=== PATIENT | female | born 1985 | race Caucasian/White ===

== ENCOUNTER 2019-03-08 02:22 | Inpatient (IN) ==
[2019-03-08] MEDS ORDERED: BUTORPHANOL 2 MG/ML VIAL IV PRN (02:39)
[2019-03-08] MEDS ORDERED: MEPERIDINE 50 MG/1 ML VIAL IV PRN (02:39)
[2019-03-08] MEDS: LACTATED RINGERS 1,000 ML IV SCH ×3 (02:40→10:27)
[2019-03-08] MEDS ORDERED: CITRIC ACID/SODIUM CITRATE 30 ML UDCUP PO PRN (02:42)
[2019-03-08] MEDS ORDERED: FAMOTIDINE 20 MG/2 ML VIAL IV PRN (02:43)
[2019-03-08] MEDS ORDERED: ePHEDrine 50 MG/ML AMP IV PRN (02:44)
[2019-03-08] MEDS ORDERED: OXYTOCIN/LR 20 UNIT/1,000 ML BAG IV PRN (02:46)
[2019-03-08] MEDS: ONDANSETRON 4 MG/2 ML VIAL IV PRN ×2 (02:55→11:18)
[2019-03-08] MEDS ORDERED: fentaNYL 2 MCG/ROPIV 0.2% EPID 100 ML EPIDURAL SCH (03:00)
[2019-03-08 03:09] LABS: Basophils % 0.5 % (0.0-0.8); Eosinophils # 0.2 10*3/uL (0.0-0.87); Eosinophils % 2.9 % (0.00-10.9); Hematocrit 32.4 VOL% (35.7-47.0); Hemoglobin 10.3 GM/DL (12.0-16.0); Immature Granulocytes % 0.4 %; Immature Granulocytes Absolute 0.03 #; Lymphocytes # 1.6 10*3/uL (1.4-4.0); Lymphocytes % 20.8 % (21.3-54.2); Mean Corpuscular HGB Conc 31.8 GM/DL (32-36); Mean Corpuscular Volume 87.6 FL (87-102); Mean Platelet Volume 10.8 FL (9.6-12.0); Monocytes % 9.8 % (1.7-12.7); Neutrophils % 65.6 % (38.7-73.9); Platelet Count 183 T/CUMM (130-400); Red Cell Distribution Width 13.6 % (9.3-17.3); White Blood Count 7.5 T/CUMM (4-12)
[2019-03-08 03:32] LABS: Alanine Aminotransferase 20 U/L (13-56); Albumin 2.8 G/DL (3.4-5.0); Alkaline Phosphatase 259 U/L (45-117); Aspartate Amino Transferase 20 U/L (0-37); Bilirubin,Total < 0.39 MG/DL (0.2-1.0); Blood Urea Nitrogen 11 MG/DL (7-18); Calcium 8.7 MG/DL (8.5-10.1); Glucose 85 MG/DL (74-106); Osmolality,Calculated 276.4 MOS/KG (273-304); Total Protein 6.5 G/DL (6.4-8.3)
[2019-03-08] MEDS: AMPICILLIN INJ 2,000 MG in SODIUM CHLORIDE 0.9% 100 ML IV SCH ×2 (04:40→10:57)
[2019-03-08 08:51] LABS: Apearance,Urine CLEAR (Clear); Bacteria,Urine Occasional /HPF (Few); Bilirubin,Urine Negative (Negative); Blood, Urine Negative (Negative); Glucose,Urine (UA) Negative (Negative); Ketones,Urine Negative (Negative); Nitrite,Urine Negative (Negative); Protein,Urine Negative; Urine Color Straw (Yellow); Urine Specific Gravity 1.005 (1.001-1.035); Urine Urobilinogen < 2.0 EU/DL (0.2-1.0)
[2019-03-08] MEDS ORDERED: LIDOCAINE MPF 2% /EPI 20 ML VIAL ONE (12:50)
[2019-03-08] MEDS ORDERED: fentaNYL 100 MCG/2 ML VIAL ONE (12:50)
[2019-03-08] MEDS ORDERED: METHYLERGONOVINE 0.2 MG/1 ML AMP ONE (16:41)
[2019-03-08] MEDS ORDERED: LIDOCAINE 1% 50 ML VIAL ONE (16:41)
[2019-03-08] MEDS ORDERED: miSOPROStol 200 MCG TABLET ONE (16:41)
[2019-03-08 17:53] LABS: Cord Venous Blood HCO3 21.3 MMOL/L; Cord Venous Blood PCO2 43.2 MMHG; Cord Venous Blood PO2 27.9
[2019-03-08 17:56] LABS: Cord Arterial Blood HCO3 18.9 MMOL/L
[2019-03-08] MEDS ORDERED: RHO(D) IMMUNE GLOBULIN 300 MCG SYRINGE IM ONE (19:31)
[2019-03-08] MEDS ORDERED: LANOLIN 50% CREAM 0.3 OZ TUBE TOP PRN (19:31)
[2019-03-08] MEDS ORDERED: DIPH/TET/ACEL PERT BOOSTER VACCINE 0.5 ML VIAL IM ONE (19:31)
[2019-03-08] MEDS ORDERED: ACETAMINOPHEN 325 MG TABLET PO PRN (19:31)
[2019-03-08] MEDS ORDERED: BISACODYL 10 MG SUPP RECTAL PRN (19:31)
[2019-03-08] MEDS ORDERED: oxyCODONE/ACETAMINOPHEN 5-325 MG TABLET PO PRN (19:31)
[2019-03-08] MEDS ORDERED: HYDROCORTISONE 2.5% RECTAL CREAM 30 GM TUBE TOP PRN (19:31)
[2019-03-08] MEDS ORDERED: WITCH HAZEL PADS 100/JAR TOP PRN (19:31)
[2019-03-08] MEDS ORDERED: MEASLES/MUMPS/RUBELLA VACCINE 0.5 ML VIAL SUBCUT ONE (19:31)
[2019-03-08] MEDS ORDERED: BENZOCAINE 20%/MENTHOL 0.5% SPRAY 56 GM CAN TOP PRN (19:31)
[2019-03-08] MEDS: IBUPROFEN 800 MG TABLET PO PRN ×2 (19:37→22:06)
[2019-03-08] MEDS ORDERED: OXYTOCIN/LR 20 UNIT/1,000 ML BAG IV ONE ×2 (20:12→20:13)
[2019-03-08] MEDS: DOCUSATE SODIUM 100 MG CAPSULE PO SCH (22:06)
[2019-03-09 05:18] LABS: Basophils # 0.1 10*3/uL (0.0-0.2); Basophils % 0.4 % (0.0-0.8); Eosinophils # 0.1 10*3/uL (0.0-0.87); Eosinophils % 0.7 % (0.00-10.9); Hematocrit 22.3 VOL% (35.7-47.0); Hemoglobin 7.1 GM/DL (12.0-16.0); Immature Granulocytes % 0.6 %; Lymphocytes # 2.3 10*3/uL (1.4-4.0); Lymphocytes % 13.8 % (21.3-54.2); Mean Corpuscular HGB Conc 31.8 GM/DL (32-36); Mean Corpuscular Volume 88.1 FL (87-102); Mean Platelet Volume 10.7 FL (9.6-12.0); Monocytes % 7.9 % (1.7-12.7); Neutrophils % 76.6 % (38.7-73.9); Platelet Count 167 T/CUMM (130-400); Red Blood Count 2.53 MC/CUMM (3.8-5.5); Red Cell Distribution Width 14.2 % (9.3-17.3); White Blood Count 16.8 T/CUMM (4-12)
[2019-03-09] MEDS ORDERED: SODIUM CHLORIDE 0.9% 1,000 ML IV PRN (06:24)
[2019-03-09] MEDS: oxyCODONE/ACETAMINOPHEN 5-325 MG TABLET PO PRN ×2 (07:51→14:58)
[2019-03-09] MEDS: DOCUSATE SODIUM 100 MG CAPSULE PO SCH ×2 (07:51→20:41)
[2019-03-09] MEDS: FERROUS SULFATE 325 MG TABLET PO SCH ×3 (08:37→20:41)
[2019-03-09 17:08] LABS: Basophils # 0.1 10*3/uL (0.0-0.2); Basophils % 0.4 % (0.0-0.8); Eosinophils # 0.2 10*3/uL (0.0-0.87); Eosinophils % 1.6 % (0.00-10.9); Hematocrit 28.3 VOL% (35.7-47.0); Immature Granulocytes % 0.7 %; Immature Granulocytes Absolute 0.09 #; Lymphocytes # 2.3 10*3/uL (1.4-4.0); Lymphocytes % 18.4 % (21.3-54.2); Mean Corpuscular HGB Conc 33.2 GM/DL (32-36); Mean Corpuscular Volume 86.5 FL (87-102); Mean Platelet Volume 10.8 FL (9.6-12.0); Monocytes % 6.8 % (1.7-12.7); Neutrophils % 72.1 % (38.7-73.9); Platelet Count 164 T/CUMM (130-400); Red Cell Distribution Width 14.4 % (9.3-17.3); White Blood Count 12.3 T/CUMM (4-12)
[2019-03-09 17:11] LABS: Hemoglobin 9.4 GM/DL (12.0-16.0); Red Blood Count 3.27 MC/CUMM (3.8-5.5)
[2019-03-10] MEDS: DOCUSATE SODIUM 100 MG CAPSULE PO SCH ×2 (01:07→09:31)
[2019-03-10 07:35] VITALS: BP 122/77
[2019-03-10] MEDS: FERROUS SULFATE 325 MG TABLET PO SCH (09:31)
== END 2019-03-10 14:50 | disposition home or self-care (01) | DRG 807 ==
LOC: N.LDOUT 02:22 → N.LD 02:50 → N.OB 20:43
PROVIDERS: ADMIT Obstetrics & Gynecology; ATTEND Obstetrics & Gynecology

== ENCOUNTER 2020-09-07 16:27 | Inpatient (IN) ==
[2020-09-07] MEDS ORDERED: BUTORPHANOL 2 MG/ML VIAL IV PRN (16:42)
[2020-09-07] MEDS ORDERED: LACTATED RINGERS 1,000 ML IV SCH (17:00)
[2020-09-07] MEDS: miSOPROStoL 200 MCG TABLET VAG ONE (17:15)
[2020-09-07] MEDS ORDERED: ACETAMINOPHEN 325 MG TABLET PO PRN (17:24)
[2020-09-07 17:31] LABS: Basophils % 0.6 % (0.0-0.8); Eosinophils # 0.3 10*3/uL (0.0-0.87); Eosinophils % 4.9 % (0.00-10.9); Hemoglobin 11.6 GM/DL (12.0-16.0); Immature Granulocytes % 0.3 %; Immature Granulocytes Absolute 0.02 #; Lymphocytes # 2.1 10*3/uL (1.4-4.0); Lymphocytes % 30.4 % (21.3-54.2); Mean Corpuscular HGB Conc 33.1 GM/DL (32-36); Mean Corpuscular Volume 89.7 FL (87-102); Mean Platelet Volume 8.9 FL (9.6-12.0); Monocytes % 8.7 % (1.7-12.7); Neutrophils % 55.1 % (38.7-73.9); Platelet Count 245 T/CUMM (130-400); Red Cell Distribution Width 13.8 % (9.3-17.3); White Blood Count 6.9 T/CUMM (4-12)
[2020-09-07] MEDS: ONDANSETRON 4 MG/2 ML VIAL IV PRN (21:10)
[2020-09-07] MEDS ORDERED: miSOPROStoL 200 MCG TABLET VAG ONE (21:15)
[2020-09-07] MEDS: MEPERIDINE 50 MG/1 ML VIAL IV PRN (21:20)
[2020-09-08] MEDS: OXYTOCIN/LR 20 UNIT/1,000 ML BAG IV SCH ×2 (00:30→05:11)
[2020-09-08] MEDS ORDERED: OXYTOCIN/LR 20 UNIT/1,000 ML BAG IV ONE ×3 (00:40→05:06)
[2020-09-08] MEDS ORDERED: RHO(D) IMMUNE GLOBULIN 300 MCG SYRINGE IM ONE (05:06)
[2020-09-08] MEDS ORDERED: WITCH HAZEL PADS 100/JAR TOP PRN (05:06)
[2020-09-08] MEDS ORDERED: HYDROCORTISONE 2.5% RECTAL CREAM 30 GM TUBE TOP PRN (05:06)
[2020-09-08] MEDS ORDERED: IBUPROFEN 800 MG TABLET PO PRN (05:06)
[2020-09-08] MEDS ORDERED: oxyCODONE/ACETAMINOPHEN 5-325 MG TABLET PO PRN ×2 (05:06)
[2020-09-08] MEDS ORDERED: ONDANSETRON 4 MG/2 ML VIAL IV PRN (05:06)
[2020-09-08] MEDS ORDERED: LANOLIN 50% CREAM 0.3 OZ TUBE TOP PRN (05:06)
[2020-09-08] MEDS ORDERED: ACETAMINOPHEN 325 MG TABLET PO PRN (05:06)
[2020-09-08] MEDS ORDERED: MEASLES/MUMPS/RUBELLA VACCINE 0.5 ML VIAL SUBCUT ONE (05:06)
[2020-09-08] MEDS ORDERED: DIPH/TET/ACEL PERT BOOSTER VACCINE 0.5 ML VIAL IM ONE (05:06)
[2020-09-08] MEDS ORDERED: BENZOCAINE 20%/MENTHOL 0.5% SPRAY 56 GM CAN TOP PRN (05:06)
[2020-09-08] MEDS ORDERED: BISACODYL 10 MG SUPP RECTAL PRN (05:06)
[2020-09-08 07:31] LABS: Basophils # 0.1 10*3/uL (0.0-0.2); Basophils % 0.8 % (0.0-0.8); Eosinophils # 0.3 10*3/uL (0.0-0.87); Eosinophils % 3.7 % (0.00-10.9); Hematocrit 26.9 VOL% (35.7-47.0); Immature Granulocytes % 0.4 %; Immature Granulocytes Absolute 0.03 #; Lymphocytes # 1.5 10*3/uL (1.4-4.0); Lymphocytes % 21.3 % (21.3-54.2); Mean Corpuscular HGB Conc 33.1 GM/DL (32-36); Mean Corpuscular Volume 90.3 FL (87-102); Mean Platelet Volume 8.8 FL (9.6-12.0); Monocytes % 6.5 % (1.7-12.7); Neutrophils % 67.3 % (38.7-73.9); Platelet Count 194 T/CUMM (130-400); Red Blood Count 2.98 MC/CUMM (3.8-5.5); Red Cell Distribution Width 13.4 % (9.3-17.3); White Blood Count 7.2 T/CUMM (4-12)
[2020-09-08 08:03] LABS: Hemoglobin 8.9 GM/DL (12.0-16.0)
[2020-09-08] MEDS ORDERED: METHYLERGONOVINE 0.2 MG/1 ML AMP IM ONE (08:21)
[2020-09-08] MEDS ORDERED: SODIUM CHLORIDE 0.9% 1,000 ML IV PRN (08:22)
[2020-09-08] MEDS ORDERED: METHYLERGONOVINE 0.2 MG/1 ML AMP ONE (08:24)
[2020-09-08] MEDS: ONDANSETRON 4 MG/2 ML VIAL IV PRN (09:05)
[2020-09-08] MEDS: MEPERIDINE 50 MG/1 ML VIAL IV PRN (09:29)
[2020-09-08 12:28] LABS: Hematocrit 28.7 VOL% (35.7-47.0); Hemoglobin 9.8 GM/DL (12.0-16.0)
[2020-09-08] MEDS ORDERED: SCOPOLAMINE 1.5 MG PATCH TRANSDERM ONE (13:09)
[2020-09-08] MEDS ORDERED: PROMETHAZINE 25 MG/1 ML VIAL IM PRN (13:09)
[2020-09-08] MEDS ORDERED: PROMETHAZINE INJ 12.5 MG in SODIUM CHLORIDE 0.9% 50 ML IV PRN (13:40)
[2020-09-08] MEDS: DOCUSATE SODIUM 100 MG CAPSULE PO SCH ×2 (18:25→21:19)
[2020-09-08 20:14] VITALS: BP 82/44
[2020-09-09 04:50] LABS: Basophils % 0.5 % (0.0-0.8); Eosinophils # 0.3 10*3/uL (0.0-0.87); Eosinophils % 3.3 % (0.00-10.9); Hematocrit 27.8 VOL% (35.7-47.0); Hemoglobin 9.5 GM/DL (12.0-16.0); Immature Granulocytes % 0.4 %; Immature Granulocytes Absolute 0.03 #; Lymphocytes # 1.8 10*3/uL (1.4-4.0); Lymphocytes % 22.5 % (21.3-54.2); Mean Corpuscular HGB Conc 34.2 GM/DL (32-36); Mean Corpuscular Volume 89.1 FL (87-102); Mean Platelet Volume 9.1 FL (9.6-12.0); Monocytes % 8.2 % (1.7-12.7); Neutrophils % 65.1 % (38.7-73.9); Platelet Count 149 T/CUMM (130-400); Red Blood Count 3.12 MC/CUMM (3.8-5.5); White Blood Count 7.9 T/CUMM (4-12)
[2020-09-09] MEDS: DOCUSATE SODIUM 100 MG CAPSULE PO SCH (08:52)
[2020-09-09] MEDS ORDERED: INFLUENZA VIRUS VACCINE 0.5 ML SYRINGE IM ONE (17:22)
[2020-09-11 12:56] LABS: Phospholipid Ab IgM, S 9.5 MPL; Phospholipid Ab IgM, S 9.6 MPL; Phospholipid Ab IgM, S < 9.4 MPL
== END 2020-09-09 10:45 | disposition home or self-care (01) | DRG 779 ==
LOC: N.LDOUT 16:27 → N.LD 16:30
PROVIDERS: ADMIT Obstetrics & Gynecology; ATTEND Obstetrics & Gynecology